=== PATIENT | female | born 1965 | race Caucasian/White ===

== ENCOUNTER 2016-11-01 09:54 | Day surgery (SDC) | payer OTHER ==
[~2016-11-01] VITALS: Ht 160 cm; Wt 58.3 kg
[2016-11-01 11:14] VITALS: Ht 160 cm; Wt 58.3 kg
[2016-11-01 11:21] VITALS: BP 130/74; PULSE 55; RESP 20
[2016-11-01] MEDS ORDERED: birth control pills (11:21)
[2016-11-01] MEDS ORDERED: NAPR-688 PO (11:21)
[2016-11-01 12:15] VITALS: BP 110/62; PULSE 50; RESP 18
[2016-11-01] MEDS ORDERED: MIDAZOLAM 1 MG/ML 2 ML INJ ONE ×2 (13:26)
[2016-11-01] MEDS ORDERED: FENTAnyl 50 MCG/ML VIAL ONE (13:26)
--- NOTE | 2016-11-01 13:49 | GILP ---
DATE OF PROCEDURE: 11/01/2016 NAME OF PROCEDURES: Colonoscopy. SURGEON: Rodo Avelar MD PREOPERATIVE DIAGNOSES: Rectal bleeding. POSTOPERATIVE DIAGNOSES 1. Colonoscopy all the way to the cecum. 2. Internal and external hemorrhoids. INDICATION FOR THE PROCEDURE: Ms. Nury Ware is a 51-year-old female patient who was scheduled fo r colonoscopy for further evaluation of rectal bleeding. The procedure and possible complications were well explained to the patient, she understood and cons ented to the procedure. DESCRIPTION OF PROCEDURE: Under the influence of fentanyl and Versed, the colonoscope was carefully introduced in the rectum and under direct vision, it was advanced all the way to the cecum. FINDINGS: The patient was noted to have internal and external hemorrhoids. No colitis or neoplasm was identified. She tolerated the procedure very well and there was no complication from the procedure. At the end of the procedures, she was awake with stable vital signs and she was discharged home to the care of her family. IMPRESSION: 1. Colonoscopy all the way to the cecum. 2. Internal and external hemorrhoids. 3. No colitis or neoplasm was identified. PLAN: 1. Anusol-HC 2.5% cream b.i.d. p.r.n. 2. Next screening colonoscopy in 10 years. Dictated By: RODO PARSONS/MORIAH Conf#: [id number] DID#: [id number] CC: RODO AVELAR MD;*EndCC*
--- NOTE | 2016-11-02 10:09 | CONS ---
DATE OF ADMISSION: 11/01/2016 DATE OF CONSULTATION: TYPE OF CONSULTATION: Preoperative Gastroenterology I thank you very much for this kind referral. HISTORY OF PRESENT ILLNESS: Ms. Nury Ware is a _[id number] female patient who has been referre d to me for further evaluation of rectal bleeding. There is no past history of inflammatory bowel d isease or colon neoplasm. The patient never had screening colonoscopy. Her appetite has been good, and she is not losing any weight. She does not have any upper abdominal pain, nausea or vomiting. There is no history of peptic ulcer disease. She has been taking naproxen. There is no history of gallstones. She does not have any fever, chills or jaundice. There is no history of liver disease . She is not a hypertensive or diabetic. She does not have any heart disease or lung problem. The re is no history of kidney disease. She is on control pills. SOCIAL HISTORY: She is a nonsmoker. She does not abuse alcohol. FAMILY HISTORY: Negative for gastrointestinal tract neoplasm. ALLERGIES: THERE IS NO HISTORY OF SIGNIFICANT DRUG ALLERGY. MEDICATIONS: Naproxen, control pill. PHYSICAL EXAMINATION: GENERAL: She is 5 feet 3 inches tall and she weighs 137 pounds. HEART: Examination of the heart reveals normal first and second heart sounds. LUNGS: Clear. ABDOMEN: Soft without any distention. Liver and spleen are not palpable. There are no masses. Th ere is no focal tenderness. Normal bowel sounds are heard. RECTAL: Examination deferred per the patient's request. It will be done at the time of colonoscopy . CENTRAL NERVOUS SYSTEM: Does not reveal any focal neurological deficit. IMPRESSION: 1. Rectal bleeding. 2. The patient never had screening colonoscopy. 3. The patient is on naproxen and control pill. PLAN: Colonoscopy for further evaluation. The procedure and possible complications are well explained to the patient. She understands and con sents to the procedure. I thank you once again. With warmest personal regards, Dictated By: RODO PARSONS/MORIAH Conf#: [id number] DID#: [id number]
== END 2016-11-01 13:09 | disposition home or self-care (01) ==
LOC: GIL 09:54
PROVIDERS: ATTEND Internal Medicine Gastroenterology
DX: K64.4 Residual hemorrhoidal skin tags (principal); K64.8 Other hemorrhoids
CPT/HCPCS: 45378; 84703; J2250; J3010; Z7610